=== PATIENT | male | born 1955 | race Caucasian/White ===

== ENCOUNTER → 2024-10-04 11:38 | Outpatient (REF) | payer MEDICARE, BC, SELFPAY | LOC: RCS 11:38 | PROVIDERS: ATTENDING PHYSICIAN Orthopaedic Surgery Sports Medicine; FAMILY PHYSICIAN Internal Medicine; REFERRING PHYSICIAN Internal Medicine | DX: S83.231A Complex tear of medial meniscus, current injury, right knee, initial encounter (principal) | CPT/HCPCS: 93005 ==